=== PATIENT | female | born 1930 | race Caucasian/White ===

== ENCOUNTER → 2017-07-10 | Day surgery (SDC) | payer OTHER ==
[2017-07-10 12:05] VITALS: TEMP 97.9
[2017-07-10 15:19] VITALS: BP 170/69; PULSE 81
== END | disposition home or self-care (01) ==
LOC: JBLOOD 08:27
PROVIDERS: ATTEND Internal Medicine Gastroenterology
PROC: 30233N1 Transfusion of Nonautologous Red Blood Cells into Peripheral Vein, Percutaneous Approach (ICD-10-PCS; principal; 2017-07-10)
DX: D64.9 Anemia, unspecified (principal)
CPT/HCPCS: 36430; 86850; 86900; 86901; 86922; P9038; P9058